=== PATIENT | female | born 1965 | race Caucasian/White ===

== ENCOUNTER 2022-05-03 20:27 | Emergency (ER) | payer BC ==
[2022-05-03 20:52] VITALS: TEMP 98.6; BMI 27.4
[2022-05-03 23:36] LABS: BASO % 1.3 % (0-2.0); EOS % 3.8 % (0-4.5); HEMATOCRIT 39.4 % (32.4-45.2); HEMOGLOBIN 14.1 GM/dL (10.7-15.3); LYMPH % 44.6 % (8-40); MCH 34.6 pg (25.7-33.7); MCHC 35.7 g/dl (32.0-36.0); MEAN PLT VOLUME 7.7 fl (7.5-11.1); NEUT % 42.3 % (42.8-82.8); PLATELET COUNT 204 10^3/uL (134-434); RBC 4.06 M/mm3 (3.60-5.2); RDW 12.4 % (11.6-15.6); WHITE BLOOD COUNT 5.8 K/mm3 (4.0-10.0)
[2022-05-04 00:08] LABS: ALBUMIN 4.2 g/dl (3.4-5.0); CALCIUM 10.2 mg/dL (8.5-10.1)
[2022-05-04 00:09] LABS: BLOOD UREA NITROGEN 20.3 mg/dL (7-18)
[2022-05-04 00:12] LABS: CREATININE 0.7 mg/dL (0.55-1.3)
[2022-05-04 00:13] LABS: BILIRUBIN,TOTAL 0.8 mg/dL (0.2-1); TOT PROT 7.8 g/dl (6.4-8.2)
[2022-05-04] MEDS ORDERED: POTASSIUM CHLORIDE TABS 20 MEQ TABLET.ER (FP) PO ONE (00:19)
[2022-05-04 02:39] VITALS: BP 140/82; PULSE 79
== END 2022-05-04 02:39 | disposition home or self-care (01) ==
LOC: JER 20:27
DX: R42 Dizziness and giddiness (principal)
CPT/HCPCS: 36415; 71046-TC-FY; 80053; 84484; 85025; 93005; 93010; 99285-25